=== PATIENT | male | born 1995 | race African-American/Black ===

== ENCOUNTER 2017-08-11 12:41 | Emergency (ER) | payer OTHER ==
[~2017-08-11] VITALS: Ht 170.2 cm; Wt 77.1 kg
[~2017-08-11 12:41] MED LIST: NOHOMEMEDICATIONS
[2017-08-11] MEDS ORDERED: PROAIR HFA8.5 GM (13:44)
[2017-08-11] MEDS ORDERED: ULTRAM 50MG TAB50 MG PO (13:51)
[2017-08-11] MEDS ORDERED: IBUPROFEN 600600 M1 PO (13:51)
[2017-08-11 14:20] VITALS: BP 126/73
== END 2017-08-11 14:20 | disposition home or self-care (01) ==
LOC: ER 12:41
DX: M25.561 Pain in right knee (principal); J45.909 Unspecified asthma, uncomplicated; Z88.5 Allergy status to narcotic agent

== ENCOUNTER 2018-05-23 05:18 | Emergency (ER) | payer OTHER ==
[~2018-05-23] VITALS: Ht 172.7 cm; Wt 78.9 kg
[~2018-05-23 05:18] MED LIST changes: +IBUPROFEN 600600 M1 PO; +PROAIR HFA8.5 GM; +ULTRAM 50MG TAB50 MG PO
[2018-05-23 05:59] LABS: ABSOLUTE NEUTROPHILS 3.4 thou/uL (1.4-8.2); BASOPHILS 2.2 % (0.0-2.0); EOSINOPHILS 0.4 % (0.0-3.0); HEMATOCRIT 42.5 % (42.0-52.0); HEMOGLOBIN 14.6 gm/dL (14.0-18.0); LYMPHOCYTES 34.5 % (24.0-44.0); MCH 30.7 pg (26.0-34.0); MCHC 34.4 g/dL (28.0-37.0); MCV 89.2 fL (80.0-100.0); MONOCYTES 4.8 % (1.0-8.0); PLATELET COUNT 205 thou/uL (150-400); POLYS 58.1 % (36.0-66.0); RBC 4.77 mil/uL (4.50-6.00); RDW 13.5 % (10.5-14.5); WBC 5.9 thou/uL (4.0-11.0)
[2018-05-23 06:07] LABS: CALCIUM 8.8 mg/dL (8.5-10.1); CREATININE 1.3 mg/dL (0.7-1.3); POTASSIUM 4.1 mmol/L (3.5-5.1)
[2018-05-23 07:48] VITALS: BP 137/82
== END 2018-05-23 07:49 | disposition home or self-care (01) ==
LOC: ER 05:18
PROVIDERS: Student in an Organized Health Care Education/Training Program
DX: T65.891A Toxic effect of other specified substances, accidental (unintentional), initial encounter (principal); T26.62XA Corrosion of cornea and conjunctival sac, left eye, initial encounter; T26.61XA Corrosion of cornea and conjunctival sac, right eye, initial encounter; R55 Syncope and collapse; J45.909 Unspecified asthma, uncomplicated; F17.210 Nicotine dependence, cigarettes, uncomplicated; Z88.5 Allergy status to narcotic agent; Y93.89 Activity, other specified; Y92.89 Other specified places as the place of occurrence of the external cause; Y99.8 Other external cause status

== ENCOUNTER 2018-11-29 20:36 | Emergency (ER) | payer OTHER ==
[~2018-11-29] VITALS: Ht 172.7 cm; Wt 79.4 kg
[2018-11-29 20:37] VITALS: BP 155/112
[2018-11-29] MEDS ORDERED: ZYPREXA 5 MG TAB5 M1 PO (20:42)
[2018-11-29] MEDS ORDERED: IBUPROFEN 600600 M1 PO (21:47)
[2018-11-29] MEDS ORDERED: ERYTHROMYCIN E3.5 G2 OPHTHALMIC (21:47)
== END 2018-11-29 22:02 | disposition home or self-care (01) ==
LOC: ER 20:36
DX: S05.01XA Injury of conjunctiva and corneal abrasion without foreign body, right eye, initial encounter (principal); F17.210 Nicotine dependence, cigarettes, uncomplicated; J45.909 Unspecified asthma, uncomplicated; I10 Essential (primary) hypertension; Z88.8 Allergy status to other drugs, medicaments and biological substances; X58.XXXA Exposure to other specified factors, initial encounter; Y92.89 Other specified places as the place of occurrence of the external cause; Y93.89 Activity, other specified; Y99.8 Other external cause status